=== PATIENT | female | born 1975 | race Hispanic/Latino ===

== ENCOUNTER 2020-07-06 23:32 | Emergency (ER) | payer MEDICAID ==
[2020-07-06 23:54] VITALS: BP 139/85
[2020-07-07] MEDS ORDERED: ACETAMINOPHEN 500 MG TAB PO ONE (00:06)
[2020-07-07] MEDS ORDERED: ACETAMINOPHEN 500 MG TAB ONE (00:08)
== END 2020-07-07 02:00 | disposition left against medical advice (07) ==
LOC: ED 23:32
DX: R52 Pain, unspecified (principal); Z53.21 Procedure and treatment not carried out due to patient leaving prior to being seen by health care provider

== ENCOUNTER 2020-07-11 18:43 | Emergency (ER) | payer SELFPAY ==
[2020-07-11] MEDS ORDERED: HYDROcodone/ACETAMINOPHEN 5-325 MG TAB PO ONE (19:41)
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
[2020-07-11 20:38] VITALS: BP 127/64
--- NOTE | 2020-07-11 20:40 | XRay Report ---
RIBS 4 VIEWS INDICATION / CLINICAL INFORMATION: MAIN. COMPARISON: None available. FINDINGS: RIBS: Minimally displaced right ninth rib fracture laterally. LUNGS: No acute findings. No pneumothorax. Signer Name: Braulio Esparza MD Signed: 07/11/2020 8:36 PM Workstation Name: [id number]
== END 2020-07-11 21:08 | disposition home or self-care (01) ==
LOC: ED 18:43
DX: S22.31XA Fracture of one rib, right side, initial encounter for closed fracture (principal); F17.200 Nicotine dependence, unspecified, uncomplicated; Z88.2 Allergy status to sulfonamides; X58.XXXA Exposure to other specified factors, initial encounter; Y93.89 Activity, other specified; Y92.89 Other specified places as the place of occurrence of the external cause; Y99.8 Other external cause status
CPT/HCPCS: 99283

== ENCOUNTER 2020-07-26 19:32 | Emergency (ER) | payer SELFPAY ==
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
[2020-07-26] MEDS ORDERED: oxyCODONE /ACETAMINOPHEN 5-325MG TAB PO ONE (21:51)
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
[2020-07-27 00:27] VITALS: BP 118/67
== END 2020-07-26 22:50 | disposition home or self-care (01) ==
LOC: ED 19:32
DX: M54.5 Low back pain (principal); F17.200 Nicotine dependence, unspecified, uncomplicated; Z79.899 Other long term (current) drug therapy; Z88.2 Allergy status to sulfonamides
CPT/HCPCS: 72100

== ENCOUNTER 2020-09-15 17:13 | Emergency (ER) | payer SELFPAY ==
[2020-09-15 17:27] VITALS: BP 111/67
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
== END 2020-09-15 18:00 | disposition left against medical advice (07) ==
LOC: ED 17:13
DX: K08.89 Other specified disorders of teeth and supporting structures (principal); Z53.21 Procedure and treatment not carried out due to patient leaving prior to being seen by health care provider

== ENCOUNTER 2021-10-14 09:40 | Emergency (ER) | payer SELFPAY ==
[2021-10-14 09:45] VITALS: BP 115/70
== END 2021-10-14 12:58 | disposition left against medical advice (07) ==
LOC: ED 09:40
DX: R10.9 Unspecified abdominal pain (principal); Z53.21 Procedure and treatment not carried out due to patient leaving prior to being seen by health care provider

== ENCOUNTER 2021-12-30 04:04 | Emergency (ER) | payer OTHER ==
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
[2021-12-30 05:30] VITALS: BP 110/67
--- NOTE | 2021-12-30 06:26 | XRay Report ---
CHEST 1 VIEW INDICATION / CLINICAL INFORMATION: Dyspnea. COMPARISON: Chest x-ray 07/11/2020 FINDINGS: SUPPORT DEVICES: None. HEART / MEDIASTINUM: No significant abnormality. . LUNGS / PLEURA: Emphysematous changes are suggested. No focal consolidation. No pneumothorax. ADDITIONAL FINDINGS: No significant additional findings. IMPRESSION: 1. Emphysematous changes are suggested without obvious superimposed acute pathology. Signer Name: Tano Cochran II, MD Signed: 12/30/2021 6:21 AM Workstation Name: [id number]
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
== END 2021-12-30 06:56 ==
LOC: ED 04:04
DX: S13.8XXA Sprain of joints and ligaments of other parts of neck, initial encounter (principal); Z88.2 Allergy status to sulfonamides; Z79.899 Other long term (current) drug therapy; X58.XXXA Exposure to other specified factors, initial encounter; Y93.89 Activity, other specified; Y92.89 Other specified places as the place of occurrence of the external cause; Y99.8 Other external cause status
CPT/HCPCS: 71045; 72040; 99283